=== PATIENT | male | born 1980 | race Caucasian/White ===

== ENCOUNTER → 2018-03-11 13:30 | Outpatient (CLI) | payer MEDICAID, SELFPAY ==
[2018-03-11 14:19] LABS: Basophils % 0.4 % (0.1-2.0); Eosinophils # 0.4 K/mm3 (0.0-0.4); Eosinophils % 4.3 % (0.1-12.0); Hematocrit 43.2 % (42.0-52.0); Hemoglobin 14.7 g/dL (14.1-18.0); Lymphocytes # 2.5 K/mm3 (0.7-4.5); Lymphocytes % 30.3 K/mm3 (10-50); Mean Corpuscular Hemoglobin 32.5 pg (27.0-31.2); Mean Corpuscular Volume 95.6 fl (80-94); Mean Platelet Volume 8.1 fl (7.4-10.4); Monocytes # 0.4 K/mm3 (0.1-1.0); Monocytes % 4.9 % (1.7-9.3); Platelet Count 245 K/mm3 (142-424); Red Blood Count 4.52 M/mm3 (4.60-6.20); Red Cell Distribution Width 12.8 % (11.5-17.5); White Blood Count 8.3 K/mm3 (4.8-10.8)
[2018-03-11 15:24] LABS: Alanine Aminotransferase 36 U/L (12-78); Albumin Level 3.7 gm/dL (3.4-5.0); Alkaline Phosphatase 79 U/L (46-116); Anion Gap 13.1 mEq/L (5-15); Aspartate Amino Transferase 28 U/L (15-37); Bilirubin,Total 0.5 mg/dL (0.2-1.0); Blood Urea Nitrogen 14 mg/dL (7-18); Calcium 9.3 mg/dL (8.5-10.1); Carbon Dioxide 28 mmol/L (21.0-32.0); Chloride 102 mmol/L (98-107); Creatinine,Serum 0.87 mg/dL (0.70-1.30); Estimated Glomerular Filt Rate 100 ml/min (>60); GFR (African American) 121 ML/MIN (>60); Globulin 3.6 gm/dl (1.3-3.2); Glucose 141 mg/dL (74-106); Potassium 4.1 mmoL/L (3.5-5.1); Sodium 139 mmol/L (136-145); Total Protein,Serum 7.3 gm/dL (6.4-8.2)
== END ==
PROVIDERS: Visit Provider Nurse Practitioner Family
DX: B19.20 Unspecified viral hepatitis C without hepatic coma (principal); Z79.899 Other long term (current) drug therapy
CPT/HCPCS: 36415; 80053; 85025; 87522

== ENCOUNTER → 2018-04-30 13:17 | Outpatient (CLI) | payer MEDICAID, SELFPAY ==
[2018-04-30 14:15] LABS: Basophils # 0.1 K/mm3 (0-0.2); Basophils % 0.9 % (0.1-2.0); Eosinophils # 0.6 K/mm3 (0.0-0.4); Eosinophils % 7.9 % (0.1-12.0); Hematocrit 41.3 % (42.0-52.0); Hemoglobin 14.4 g/dL (14.1-18.0); Lymphocytes # 2.3 K/mm3 (0.7-4.5); Lymphocytes % 32.1 K/mm3 (10-50); Mean Corpuscular Volume 94.2 fl (80-94); Mean Platelet Volume 7.8 fl (7.4-10.4); Monocytes # 0.4 K/mm3 (0.1-1.0); Monocytes % 5.9 % (1.7-9.3); Neutrophils # 3.9 K/mm3 (1.8-7.8); Neutrophils % 53.3 % (37.0-80.0); Platelet Count 267 K/mm3 (142-424); Red Blood Count 4.38 M/mm3 (4.60-6.20); Red Cell Distribution Width 12.9 % (11.5-17.5); White Blood Count 7.3 K/mm3 (4.8-10.8)
[2018-04-30 14:20] LABS: Activated Partial Thrombo Time 29.8 seconds (23.6-34.0); INR 0.96 (0.9-1.1); Prothrombin Time 9.9 seconds (9.4-11.8)
[2018-04-30 14:42] LABS: Alanine Aminotransferase 31 U/L (12-78); Albumin Level 3.7 gm/dL (3.4-5.0); Albumin/Globulin Ratio 1.1 (1.1-1.8); Alkaline Phosphatase 92 U/L (46-116); Anion Gap 12.3 mEq/L (5-15); Aspartate Amino Transferase 24 U/L (15-37); Bilirubin,Total 0.2 mg/dL (0.2-1.0); Blood Urea Nitrogen 16 mg/dL (7-18); Calcium 8.4 mg/dL (8.5-10.1); Carbon Dioxide 26 mmol/L (21.0-32.0); Chloride 107 mmol/L (98-107); Estimated Glomerular Filt Rate 110 ml/min (>60); GFR (African American) 133 ML/MIN (>60); Globulin 3.3 gm/dl (1.3-3.2); Glucose 107 mg/dL (74-106); Potassium 4.3 mmoL/L (3.5-5.1); Sodium 141 mmol/L (136-145)
== END ==
PROVIDERS: Visit Provider Nurse Practitioner Family
DX: B19.20 Unspecified viral hepatitis C without hepatic coma (principal); Z79.899 Other long term (current) drug therapy
CPT/HCPCS: 36415; 80053; 85025; 85610; 85730; 87522

== ENCOUNTER → 2018-05-24 11:08 | Outpatient (CLI) | payer MEDICAID, SELFPAY ==
[2018-05-24 11:38] LABS: Basophils # 0.1 K/mm3 (0-0.2); Basophils % 0.6 % (0.1-2.0); Eosinophils # 0.4 K/mm3 (0.0-0.4); Eosinophils % 4.4 % (0.1-12.0); Hematocrit 40.6 % (42.0-52.0); Hemoglobin 13.7 g/dL (14.1-18.0); Lymphocytes # 1.9 K/mm3 (0.7-4.5); Lymphocytes % 22.5 K/mm3 (10-50); Mean Corpuscular HGB Conc 33.6 g/dL (31.8-35.4); Mean Corpuscular Hemoglobin 31.8 pg (27.0-31.2); Mean Corpuscular Volume 94.8 fl (80-94); Mean Platelet Volume 7.4 fl (7.4-10.4); Monocytes # 0.4 K/mm3 (0.1-1.0); Monocytes % 4.6 % (1.7-9.3); Neutrophils # 5.6 K/mm3 (1.8-7.8); Neutrophils % 67.8 % (37.0-80.0); Platelet Count 266 K/mm3 (142-424); Red Blood Count 4.29 M/mm3 (4.60-6.20); Red Cell Distribution Width 12.9 % (11.5-17.5); White Blood Count 8.3 K/mm3 (4.8-10.8)
[2018-05-24 12:23] LABS: Alanine Aminotransferase 32 U/L (12-78); Albumin Level 3.7 gm/dL (3.4-5.0); Albumin/Globulin Ratio 1.1 (1.1-1.8); Alkaline Phosphatase 83 U/L (46-116); Anion Gap 13.1 mEq/L (5-15); Aspartate Amino Transferase 24 U/L (15-37); Bilirubin,Total 0.4 mg/dL (0.2-1.0); Blood Urea Nitrogen 15 mg/dL (7-18); Calcium 8.9 mg/dL (8.5-10.1); Carbon Dioxide 28 mmol/L (21.0-32.0); Chloride 104 mmol/L (98-107); Creatinine,Serum 0.89 mg/dL (0.70-1.30); Estimated Glomerular Filt Rate 97 ml/min (>60); GFR (African American) 118 ML/MIN (>60); Globulin 3.5 gm/dl (1.3-3.2); Glucose 98 mg/dL (74-106); Potassium 4.1 mmoL/L (3.5-5.1); Sodium 141 mmol/L (136-145); Total Protein,Serum 7.2 gm/dL (6.4-8.2)
== END ==
PROVIDERS: Visit Provider Nurse Practitioner Family
DX: B19.20 Unspecified viral hepatitis C without hepatic coma (principal); Z79.899 Other long term (current) drug therapy
CPT/HCPCS: 36415; 80053; 85025; 87522

== ENCOUNTER → 2018-08-24 07:10 | Outpatient (CLI) | payer OTHER, MEDICAID, SELFPAY ==
[2018-08-24 08:12] LABS: Basophils # 0.1 K/mm3 (0-0.2); Basophils % 0.7 % (0.1-2.0); Eosinophils # 0.4 K/mm3 (0.0-0.4); Eosinophils % 5.2 % (0.1-12.0); Hematocrit 43.2 % (42.0-52.0); Hemoglobin 14.3 g/dL (14.1-18.0); Lymphocytes # 2.7 K/mm3 (0.7-4.5); Lymphocytes % 32.9 K/mm3 (10-50); Mean Corpuscular HGB Conc 33.2 g/dL (31.8-35.4); Mean Corpuscular Hemoglobin 31.6 pg (27.0-31.2); Mean Corpuscular Volume 95.4 fl (80-94); Mean Platelet Volume 7.4 fl (7.4-10.4); Monocytes # 0.4 K/mm3 (0.1-1.0); Neutrophils # 4.6 K/mm3 (1.8-7.8); Neutrophils % 56.1 % (37.0-80.0); Platelet Count 299 K/mm3 (142-424); Red Blood Count 4.53 M/mm3 (4.60-6.20); Red Cell Distribution Width 12.7 % (11.5-17.5); White Blood Count 8.3 K/mm3 (4.8-10.8)
[2018-08-24 08:34] LABS: Alanine Aminotransferase 34 U/L (12-78); Albumin/Globulin Ratio 1.1 (1.1-1.8); Alkaline Phosphatase 85 U/L (46-116); Anion Gap 11.7 mEq/L (5-15); Aspartate Amino Transferase 27 U/L (15-37); Bilirubin,Total 0.4 mg/dL (0.2-1.0); Blood Urea Nitrogen 16 mg/dL (7-18); Calcium 9.2 mg/dL (8.5-10.1); Carbon Dioxide 30 mmol/L (21.0-32.0); Chloride 102 mmol/L (98-107); Estimated Glomerular Filt Rate 110 ml/min (>60); GFR (African American) 133 ML/MIN (>60); Globulin 3.5 gm/dl (1.3-3.2); Glucose 85 mg/dL (74-106); Potassium 4.7 mmoL/L (3.5-5.1); Sodium 139 mmol/L (136-145); Total Protein,Serum 7.5 gm/dL (6.4-8.2)
== END ==
PROVIDERS: PCP Family Medicine; Visit Provider Nurse Practitioner Family
DX: B19.20 Unspecified viral hepatitis C without hepatic coma (principal); Z00.00 Encounter for general adult medical examination without abnormal findings; Z79.899 Other long term (current) drug therapy
CPT/HCPCS: 36415; 80053; 85025; 87522

== ENCOUNTER → 2019-03-17 12:07 | Outpatient (CLI) | payer BC, MEDICAID, SELFPAY ==
[2019-03-17 13:00] VITALS: PULSE 88; PULSE 90
== END ==
PROVIDERS: PCP Family Medicine; Visit Provider Nurse Practitioner Family
DX: R06.02 Shortness of breath (principal); G47.33 Obstructive sleep apnea (adult) (pediatric); R40.0 Somnolence; J44.9 Chronic obstructive pulmonary disease, unspecified
CPT/HCPCS: 94060; 94640; 94726; 94729; G0399

== ENCOUNTER → 2020-09-20 14:52 | Outpatient (CLI) | payer BC, SELFPAY | PROVIDERS: PCP Nurse Practitioner Family; Visit Provider Nurse Practitioner Family | DX: Z03.818 Encounter for observation for suspected exposure to other biological agents ruled out (principal) | CPT/HCPCS: U0003 ==

== ENCOUNTER → 2020-10-02 13:20 | Outpatient (CLI) | payer BC, SELFPAY ==
[2020-10-03 09:48] LABS: Covid-19 Nasal PCR Sendout Lex Positive
== END ==
PROVIDERS: PCP Nurse Practitioner Family; Visit Provider Nurse Practitioner Family
DX: Z20.828 Contact with and (suspected) exposure to other viral communicable diseases (principal); U07.1 COVID-19
CPT/HCPCS: U0004

== ENCOUNTER → 2021-10-27 12:15 | Outpatient (CLI) | payer BC, SELFPAY | PROVIDERS: PCP Internal Medicine Adolescent Medicine; Visit Provider Nurse Practitioner | DX: Z20.822 Contact with and (suspected) exposure to COVID-19 (principal) | CPT/HCPCS: C9803; U0003; U0005 ==

== ENCOUNTER → 2022-10-06 16:25 | Outpatient (CLI) | payer OTHER, BC, SELFPAY ==
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
== END ==
PROVIDERS: PCP Nurse Practitioner Family; Visit Provider Nurse Practitioner Family
DX: M25.531 Pain in right wrist (principal); M79.641 Pain in right hand
CPT/HCPCS: 73110; 73130

== ENCOUNTER → 2023-10-26 11:03 | Outpatient (CLI) | payer OTHER, SELFPAY ==
[2023-10-26 11:21] LABS: Basophils % 0.4 % (0.1-2.0); Eosinophils # 0.2 K/mm3 (0.0-0.4); Eosinophils % 2.7 % (0.1-12.0); Hematocrit 43.6 % (42.0-52.0); Hemoglobin 14.5 g/dL (14.1-18.0); Lymphocytes # 1.8 K/mm3 (0.7-4.5); Lymphocytes % 30.1 % (10-50); Mean Corpuscular HGB Conc 33.2 g/dL (31.8-35.4); Mean Corpuscular Hemoglobin 31.8 pg (27.0-31.2); Mean Corpuscular Volume 95.8 fl (80-94); Mean Platelet Volume 8.3 fl (7.4-10.4); Monocytes # 0.3 K/mm3 (0.1-1.0); Monocytes % 5.3 % (1.7-9.3); Neutrophils # 3.8 K/mm3 (1.8-7.8); Neutrophils % 61.5 % (37.0-80.0); Platelet Count 273 K/mm3 (142-424); Red Blood Count 4.55 M/mm3 (4.60-6.20); White Blood Count 6.1 K/mm3 (4.8-10.8)
[2023-10-26 11:42] LABS: Hemoglobin A1C 5.4 % (4.0-6.0)
[2023-10-26 12:04] LABS: Alanine Aminotransferase 40 U/L (12-78); Albumin Level 4.1 g/dl (3.5-5.0); Albumin/Globulin Ratio 1.3 (1.1-1.8); Alkaline Phosphatase 68 U/L (38-126); Anion Gap 9.6 mEq/L (5-15); Aspartate Amino Transferase 33 U/L (17-59); Bilirubin,Total 0.5 mg/dl (0.2-1.3); Blood Urea Nitrogen 14 mg/dl (9-20); Calcium 8.5 mg/dl (8.4-10.2); Carbon Dioxide 29 mmol/L (22.0-30.0); Chloride 103 mmol/L (98-107); Chol/HDL Ratio 4.5 (1-3.5); Cholesterol 116 mg/dl (140-200); Estimated Glomerular Filt Rate 107 ml/min (>60); GFR (African American) 129 ML/MIN (>60); Globulin 3.1 g/dL (1.3-3.2); Glucose 93 mg/dl (74-100); HDL Cholesterol 26 mg/dl (40-60); Potassium 4.6 mmoL/L (3.5-5.1); Sodium 137 mmol/L (136-145); Total Protein,Serum 7.2 g/dl (6.3-8.2); Triglycerides 54 mg/dl (30-150); VLDL Cholesterol 11 mg/dL (0-40)
[2023-10-26 12:16] LABS: Direct LDL Cholesterol 79.99 mg/dL (100-129)
[2023-10-26 12:21] LABS: 25-OH Vitamin D, Total 26.8 ng/mL (30-100)
[2023-10-26 12:22] LABS: Free Thyroxine Index 2.3 ug/dL (5.93-13.13); T4 (Thyroxine) 7.5 ug/dl (5.53-11.0); Triiodothryronine (T3) Uptake 31 % (23.5-40.5)
[2023-10-26 12:36] LABS: Thyroid Stimulating Hormone 6.18 uIU/mL (0.465-4.68)
[2023-10-26 12:55] LABS: Vitamin B12 863 pg/mL (239-931)
== END ==
PROVIDERS: PCP Nurse Practitioner Family; Visit Provider Nurse Practitioner Family
DX: Z00.00 Encounter for general adult medical examination without abnormal findings (principal); R94.6 Abnormal results of thyroid function studies; G47.33 Obstructive sleep apnea (adult) (pediatric); E66.9 Obesity, unspecified; Z68.32 Body mass index [BMI] 32.0-32.9, adult; Z79.899 Other long term (current) drug therapy
CPT/HCPCS: 36415; 80053; 80061; 82306; 82607; 83036; 84436; 84443; 84479; 85025

== ENCOUNTER 2024-07-07 08:10 | Outpatient (CLI) | payer SELFPAY ==
[2024-07-07 08:35] LABS: Basophils # 0.1 K/mm3 (0-0.2); Eosinophils # 0.4 K/mm3 (0.0-0.4); Eosinophils % 6.7 % (0.1-12.0); Hematocrit 44.9 % (42.0-52.0); Lymphocytes # 1.5 K/mm3 (0.7-4.5); Lymphocytes % 22.6 % (10-50); Mean Corpuscular HGB Conc 31.1 g/dL (31.8-35.4); Mean Corpuscular Hemoglobin 32.1 pg (27.0-31.2); Mean Corpuscular Volume 103.2 fl (80-94); Mean Platelet Volume 7.7 fl (7.4-10.4); Monocytes # 0.4 K/mm3 (0.1-1.0); Monocytes % 5.9 % (1.7-9.3); Neutrophils # 4.1 K/mm3 (1.8-7.8); Neutrophils % 63.8 % (37.0-80.0); Platelet Count 440 K/mm3 (142-424); Red Blood Count 4.35 M/mm3 (4.60-6.20); Red Cell Distribution Width 13.5 % (11.5-17.5); White Blood Count 6.5 K/mm3 (4.8-10.8)
[2024-07-07 09:13] LABS: Alanine Aminotransferase 41 U/L (12-78); Albumin Level 3.7 g/dl (3.5-5.0); Albumin/Globulin Ratio 1.1 (1.1-1.8); Alkaline Phosphatase 67 U/L (38-126); Anion Gap 9.1 mEq/L (5-15); Aspartate Amino Transferase 34 U/L (17-59); Bilirubin,Total 0.4 mg/dl (0.2-1.3); Blood Urea Nitrogen 15 mg/dl (9-20); Calcium 9.3 mg/dl (8.4-10.2); Carbon Dioxide 30 mmol/L (22.0-30.0); Chloride 105 mmol/L (98-107); Chol/HDL Ratio 5.9 (1-3.5); Cholesterol 154 mg/dl (140-200); Estimated Glomerular Filt Rate 124 ml/min (>60); GFR (African American) 150 ML/MIN (>60); Globulin 3.3 g/dL (1.3-3.2); Glucose 100 mg/dl (74-100); HDL Cholesterol 26 mg/dl (40-60); Potassium 5.1 mmoL/L (3.5-5.1); Sodium 139 mmol/L (136-145); Triglycerides 59 mg/dl (30-150); VLDL Cholesterol 12 mg/dL (0-40)
[2024-07-07 09:24] LABS: Direct LDL Cholesterol 114.63 mg/dL (100-129)
[2024-07-07 09:30] LABS: 25-OH Vitamin D, Total 28.2 ng/mL (30-100)
[2024-07-07 09:44] LABS: Thyroid Stimulating Hormone 2.18 uIU/mL (0.465-4.68)
[2024-07-07 11:28] LABS: Hemoglobin A1C 5.5 % (4.0-6.0)
[2024-07-08 08:17] LABS: Testosterone,Total 157 ng/dL (264-916)
== END 2024-07-07 23:59 | disposition home or self-care (01) ==
PROVIDERS: PCP Nurse Practitioner Family; Visit Provider Nurse Practitioner Family
DX: Z00.00 Encounter for general adult medical examination without abnormal findings (principal); E03.9 Hypothyroidism, unspecified; E55.9 Vitamin D deficiency, unspecified; R53.81 Other malaise
CPT/HCPCS: 36415; 80050; 80053; 80061; 82306; 83036; 84403; 84443; 85025

== ENCOUNTER 2024-10-08 11:45 | Emergency (ER) | payer SELFPAY ==
[2024-10-08 12:30] VITALS: BP 134/65; PULSE 74; RESP 20; TEMP 37; O2SAT 97; BMI 36.8
--- NOTE | 2024-10-08 12:48 | EXP.UTC ---
Discharge Plan Disposition Patient Disposition: Home, Self-Care Condition: Good Prescriptions Prescriptions: New prednisone 20 mg tablet 20 mg PO BID Qty: 10 0RF No Action famotidine 40 mg tablet 40 mg PO HS Patient Comments: TAKE ONE TABLET BY MOUTH EVERY DAY AT BEDTIME levothyroxine 75 mcg tablet 75 mcg PO DAILY Patient Comments: TAKE ONE TABLET BY MOUTH EVERY DAY buprenorphine-naloxone 8-2 mg film 1 film sublingual DAILY Referrals Follow up/Referrals: Leandro Cisneros MD [Primary Care Provider] - See instructions Activity Restrictions/Add. Instructions Additional Instructions/Restrictions: Steroids as directed Benadryl [id number] as needed If symptoms return or worsen return to the [facility] or ER Follow-up with PCP for more testing Clinical Impressions Clinical Impression: Allergic reaction Instructions Patient Instructions: DI for General Allergic Reactions Print Language Print Language: Lao Discharge ED Provider: Anjana ([facility])[place] [facility] [place] General Stated complaint: sore throat, swollen Mode of Arrival: Ambulatory Source of Information: Patient Limitations: No Limitations Time Seen by Provider: 10/08/24 12:48 Description of Symptoms (Recalled from Triage Doc. by RN): PATIENT STATES HIS THROAT STARTED SWELLING YESTERDAY AND HE HAD AN EPISODE OF SOA LAST NIGHT. HE STATES HIS THROAT IS NOT SWOLLEN NOW, BUT IS SORE. HEENT Symptoms (Recalled from RN notes): Yes Resp Symptoms (Recalled from RN notes): No Skin Symptoms (Recalled from RN notes): No MS Symptoms (Recalled from RN notes): No Functional Status (Recalled from RN notes): WNL History of Present Illness Provider Complaint: 44-year-old male presents for sore throat. Patient states he woke up at 3:00 in the morning and felt like his throat was closing and he could not catch a deep breath. Patient states her symptoms are gone now but his throat is still a little sore and feels slightly swollen. Patient denies shortness of breath or rash. Patient states he has been having these types of episodes now for couple of years but does not know what he is coming in contact with. Related Data Home Medications ?Medication ?Instructions ?Recorded ?Confirmed buprenorphine 8 mg-naloxone 2 mg 1 film sublingual DAILY 10/08/24 10/08/24 sublingual film famotidine 40 mg tablet 40 mg PO HS 10/08/24 10/08/24 levothyroxine 75 mcg tablet 75 mcg PO DAILY 10/08/24 10/08/24 Previous Rx's ?Medication ?Instructions ?Recorded prednisone 20 mg tablet 20 mg PO BID #10 tabs 10/08/24 Allergies Allergy/AdvReac Type Severity Reaction Status Date / Time No Known Allergies Allergy Verified 02/11/23 15:59 Worker's Comp Is this a Worker's Comp case?: No [facility] Disclaimer: The information contained in this section may have been updated after the patient was seen, as this information can be updated by other users. Family History , WIRELESS ARCHITECT) Substance abuse Diabetes Alcoholism Cancer Stroke Social History , WIRELESS ARCHITECT) Smoking Status: Current every day smoker alcohol intake: current alcohol intake frequency: holidays/special occasions only substance use type: former substance user and opiates current occupational status: employed Travel in the last 8 weeks: None household members: significant other housing: house marital status: ROS Obtained: Yes Systems reviewed as appropriate & no additional complaints except as documented Physical Exam General General appearance: alert and in no apparent distress Eye Eye exam: Present normal appearance ENT ENT exam: Present mucous membranes moist and TM's normal bilaterally Expanded ENT Exam Mouth exam: Present tongue normal; Absent lip swelling or tongue swelling Throat exam: Present tonsillar erythema; Absent tonsillar exudate Respiratory Respiratory exam: Present normal lung sounds bilaterally Cardiovascular Cardiovascular exam: Present regular rate and normal rhythm Neurological Exam Neurological exam: Present alert and oriented X3 Skin Skin exam: Present warm and intact; Absent rash Lymphatic Lymphatic Findings: no adenopathy Medical Decision Making Medical Records Medical records reviewed: Yes I reviewed the patient's medical records. Screening: Per USPSTF and CDC recommendations, given the prevalence of disease in our region, it is our hospital?s policy to screen for HIV and viral Hepatitis for all patients aged 18 and over and those with ongoing risk factors. [place] Inquiry Pt receiving controlled substance: No [place] was queried for this patient: No Vital Signs: 10/08/24 12:30 Temperature 98.6 F Temperature Source Oral Pulse Rate [Left Brachial] 74 Respiratory Rate 20 Blood Pressure [Left Arm] 134/65 Blood Pressure Mean [Left Arm] 88 Blood Pressure Source [Left Arm] Automatic Cuff Blood Pressure Position [Left Arm] Sitting 02 Sat by Pulse Oximetry 97 Oxygen Delivery Method Room Air Lab Data Lab results reviewed: Yes I reviewed the patient's lab results.
[2024-10-08 12:52] LABS: UTC Strep Screen (Rapid) Negative (Negative)
[2024-10-08 13:04] VITALS: BP 134/65; PULSE 74; RESP 20; TEMP 37; O2SAT 97
== END 2024-10-08 13:08 | disposition home or self-care (01) ==
PROVIDERS: Emergency Provider Nurse Practitioner Family; PCP Internal Medicine Adolescent Medicine
DX: T78.40XA Allergy, unspecified, initial encounter (principal)
CPT/HCPCS: 87880; 99213; G0381

== ENCOUNTER 2025-03-09 11:41 | Outpatient (CLI) | payer OTHER, SELFPAY ==
[2025-03-09 12:27] LABS: Basophils # 0.1 K/mm3 (0-0.2); Basophils % 0.7 % (0.1-2.0); Eosinophils # 0.3 Kmm3 (0.0-0.4); Eosinophils % 3.2 % (0.1-12.0); Hematocrit 40.1 % (42.0-52.0); Hemoglobin 13.8 g/dL (14.1-18.0); Immature Granulocytes # 0.03 10^3uL; Immature Granulocytes % 0.4 %; Lymphocytes # 2.1 K/mm3 (0.7-4.5); Lymphocytes % 25.8 % (10-50); Mean Corpuscular HGB Conc 34.4 g/dL (31.8-35.4); Mean Corpuscular Hemoglobin 32.3 pg (27.0-31.2); Mean Corpuscular Volume 93.9 fl (80-94); Mean Platelet Volume 9.8 fl (7.4-10.4); Monocytes # 0.6 K/mm3 (0.1-1.0); Monocytes % 6.9 % (1.7-9.3); Neutrophils # 5.1 K/mm3 (1.8-7.8); Nucleated Red Blood Cells # 0 10^3/uL; Nucleated Red Blood Cells % 0 %; Platelet Count 283 K/mm3 (142-424); Red Blood Count 4.27 M/mm3 (4.60-6.20); Red Cell Distribution Width 12.7 % (11.5-17.5); Red Cell Distribution Width-SD 43.8 fL; White Blood Count 8.1 K/mm3 (4.8-10.8)
[2025-03-09 12:40] LABS: Albumin Level 4.4 g/dl (3.5-5.0); Chloride 104 mmol/L (98-107); Potassium 4.7 mmoL/L (3.5-5.1); Sodium 136 mmol/L (136-145)
[2025-03-09 12:42] LABS: Blood Urea Nitrogen 16 mg/dl (9-20); Estimated Glomerular Filt Rate 93 ml/min (>60); GFR (African American) 112 ML/MIN (>60)
[2025-03-09 12:43] LABS: Alanine Aminotransferase 46 U/L (12-78); Albumin/Globulin Ratio 1.6 (1.1-1.8); Alkaline Phosphatase 70 U/L (38-126); Anion Gap 7.7 mEq/L (5-15); Aspartate Amino Transferase 37 U/L (17-59); Bilirubin,Total 0.6 mg/dl (0.2-1.3); Calcium 9.2 mg/dl (8.4-10.2); Carbon Dioxide 29 mmol/L (22.0-30.0); Chol/HDL Ratio 3.8 (1-3.5); Cholesterol 157 mg/dl (140-200); Globulin 2.7 g/dL (1.3-3.2); Glucose 100 mg/dl (74-100); HDL Cholesterol 41 mg/dl (40-60); Total Protein,Serum 7.1 g/dl (6.3-8.2); Triglycerides 75 mg/dl (30-150); VLDL Cholesterol 15 mg/dL (0-40)
[2025-03-09 12:54] LABS: Direct LDL Cholesterol 101.01 mg/dL (100-129)
[2025-03-09 13:06] LABS: 25-OH Vitamin D, Total 30.2 ng/mL (30-100)
[2025-03-09 13:16] LABS: Thyroid Stimulating Hormone 5.64 uIU/mL (0.465-4.68)
[2025-03-09 13:40] LABS: Hemoglobin A1C 5.6 % (4.0-6.0)
[2025-03-09 13:57] LABS: Vitamin B12 550 pg/mL (239-931)
[2025-03-10 12:14] LABS: Iron 134 ug/dL (49-181)
[2025-03-10 12:23] LABS: Total Iron Binding Capacity 334 ug/dL (261-462)
[2025-03-10 12:50] LABS: Ferritin 88.5 ng/ml (17.9-464)
== END 2025-03-09 23:59 | disposition home or self-care (01) ==
LOC: LAB 11:44
PROVIDERS: PCP Internal Medicine Adolescent Medicine; Visit Provider Nurse Practitioner Family
DX: Z00.00 Encounter for general adult medical examination without abnormal findings (principal); E55.9 Vitamin D deficiency, unspecified; E03.9 Hypothyroidism, unspecified; E66.9 Obesity, unspecified
CPT/HCPCS: 36415; 80053; 80061; 82306; 82607; 82728; 83036; 83540; 83550; 84443; 85025

== ENCOUNTER 2025-08-14 08:23 | Outpatient (CLI) | payer OTHER, SELFPAY ==
[2025-08-14 08:58] LABS: Hematocrit 41.2 % (42.0-52.0); Hemoglobin 13.9 g/dL (14.1-18.0); Immature Granulocytes % 0.6 %; Mean Corpuscular HGB Conc 33.7 g/dL (31.8-35.4); Mean Corpuscular Hemoglobin 32.5 pg (27.0-31.2); Mean Corpuscular Volume 96.3 fl (80-94); Nucleated Red Blood Cells % 0 %; Platelet Count 286 K/mm3 (142-424); Red Blood Count 4.28 M/mm3 (4.60-6.20); Red Cell Distribution Width-SD 46.3 fL; White Blood Count 8.2 K/mm3 (4.8-10.8)
[2025-08-14 09:22] LABS: Alanine Aminotransferase 44 U/L (12-78); Albumin Level 4.2 g/dl (3.5-5.0); Albumin/Globulin Ratio 1.6 (1.1-1.8); Alkaline Phosphatase 81 U/L (38-126); Anion Gap 13.8 mEq/L (5-15); Aspartate Amino Transferase 35 U/L (17-59); Bilirubin,Total 0.7 mg/dl (0.2-1.3); Blood Urea Nitrogen 18 mg/dl (9-20); Calcium 9.3 mg/dl (8.4-10.2); Carbon Dioxide 28 mmol/L (22.0-30.0); Chloride 101 mmol/L (98-107); Creatinine,Serum 0.90 mg/dl (0.66-1.25); Estimated Glomerular Filt Rate 93 ml/min (>60); GFR (African American) 112 ML/MIN (>60); Globulin 2.7 g/dL (1.3-3.2); Glucose 94 mg/dl (74-100); Potassium 4.8 mmoL/L (3.5-5.1); Sodium 138 mmol/L (136-145); Total Protein,Serum 6.9 g/dl (6.3-8.2)
[2025-08-14 09:28] LABS: NT Pro Brain Natriuretic Pep. < 20.0 pg/mL (0-125)
[2025-08-14 09:38] LABS: Free T4 (Free Thyroxine) 0.70 ng/dl (0.78-2.19)
[2025-08-14 09:50] LABS: Thyroid Stimulating Hormone 7.18 uIU/mL (0.465-4.68)
== END 2025-08-14 23:59 | disposition home or self-care (01) ==
LOC: LAB 08:25
PROVIDERS: PCP Nurse Practitioner Family; Visit Provider Nurse Practitioner Family
DX: E03.9 Hypothyroidism, unspecified (principal); D64.9 Anemia, unspecified; R60.0 Localized edema
CPT/HCPCS: 36415; 80053; 83880; 84439; 84443; 85025

== ENCOUNTER 2025-08-23 13:24 | Outpatient (CLI) | payer BC, SELFPAY ==
--- NOTE | 2025-08-23 13:31 | CA_ITS ---
APPROVED REPORT EXAM: Comprehensive 2D, Doppler, and color-flow Echocardiogram Research Mechanic: Lita Novak RVT Ht: 6 ft 2 in Wt: 300lbs BSA: 2.58 BP: 136/74 mmHg Indications: EDEMA 2D Dimensions LA Volume 40.10 mL LA Volume Index 15.54 mL/m2 (M/F) 16-34 M-Mode Dimensions RVDd 3.08 cm (0.9-2.6) LA Diam 3.29 cm (1.9-4.0) LVDd 5.99 cm (3.5-5.7) LVDs 3.93 cm (3.5-5.7) IVSd 0.98 cm (0.6-1.1) PWd 0.89 cm (0.6-1.1) EF (Teich) 62.60% FS 34.40% EDV (Teich) 179.30 mL TAPSE 2.35 (<1.7) ESV (Teich) 67.10 mL LV Diastology E Decel Time 220 (160-240 msec) E/A Ratio 1.3 Aortic Valve SHEILA Index 1.27 cm2/m2 AoV Peak Isra. 131.0 (50-130 cm/s) AO Peak GR. 6.80 mmHg AO Mean GR. 3.60 (<5 mmHg) AO VTI 24.2 (18-25 cm) SHEILA (VTI) 3.36 (2.5-4.5 cm2) Mitral Valve MV E Max Isra. 96.0 (40-130 cm/s) MV A Velocity 76.0 (40-130 cm/s) E/A Ratio 1.27 MV PHT 64.0 ms Pulmonary Valve PV Peak Velocity 84.0 (50-150 cm/s) Tricuspid Valve TR P. Velocity 250.00 cm/s RAP Estimate 8.00 mmHg RVSP 33.00 mmHg Left Ventricle The left ventricle is normal size. Left ventricular systolic function is normal. The left ventricular ejection fraction is within the normal range. There is normal left ventricular wall thickness. There is normal LV segmental wall motion. The left ventricular diastolic function is normal. LVEF is 55% Right Ventricle The right ventricle is mildly dilated. The right ventricular systolic function is normal. Atria The left atrium size is normal. The right atrium size is normal. There is no color Doppler evidence of interatrial shunt. Aortic Valve The aortic valve opens well. There is no hemodynamically significant aortic valvular stenosis. No aortic regurgitation is present. Mitral Valve The mitral valve is normal in structure. No evidence of mitral valve stenosis. Trace mitral regurgitation is present. Tricuspid Valve The tricuspid valve leaflets are thin and pliable. Trace tricuspid regurgitation. There is insufficient TR jet to estimate RVSP. Pulmonic Valve The pulmonary valve is grossly normal in structure. Trace pulmonic valve regurgitation is present. Great Vessels The aortic root is normal in size. IVC is normal in size and collapses >50% with inspiration. Pericardium There is no pericardial effusion. Other Information Study Quality: Technically Difficult Conclusion Normal biventricular systolic function. Mild RV dilation. No significant valvular stenosis or regurgitation. Electronically signed by : Lissy Harmon MD 09/01/2025 01:08:56
--- OUTSIDE RECORDS SUMMARY | 2025-08-23 14:34 | XMS_ITS | Clinical Summary ---
Author Organization Healthcare Address [address] [place] [address] Care Team Providers Care Delivery Specialist Name Role Phone Edmond Mahmood MD Primary Care Provider [phone] Immunizations Immunization Administration Dates Next Due Hep A / Hep B 02/07/2018 Family History Medical History Relation Name Comments Other cancer Father Relation Name Status Comments Father Social History Tobacco Use Types Packs/Day Years Used Date Smoking Tobacco: Every Day Alcohol Use Standard Drinks/Week Comments Yes 0 (1 standard drink = 0.6 oz pure alcohol) Alcoholic Drinks/day: Occasional alcohol use Sex and Gender Information Value Date Recorded Sex Assigned at Not on file Legal Sex Male 8:12 PM EDT Gender Identity Not on file Sexual Orientation Not on file Last Filed Vital Signs Vital Sign Reading Time Taken Comments Blood Pressure 121/76 03/29/2018 2:16 PM EDT Pulse 71 03/29/2018 2:16 PM EDT Temperature 36.7 C (98 F) 03/29/2018 2:16 PM EDT Respiratory Rate - - Oxygen Saturation - - Inhaled Oxygen Concentration - - Weight 114 kg (252 lb 4 oz) 03/29/2018 2:16 PM E DT Height 185.4 cm (6' 1 ) 03/29/2018 2:16 PM EDT Body Mass Index 33.28 03/29/2018 2:16 PM EDT Plan of Treatment Not on file Care Teams Delivery Specialist Relationship Specialty Start Date End Date Edmond Mahmood MD [address] [place] [address] #1 #1 EDY Hernandez [id number] PCP - General 03/14/21
== END 2025-08-23 23:59 | disposition home or self-care (01) ==
LOC: RT 13:29
PROVIDERS: PCP Nurse Practitioner Family; Visit Provider Nurse Practitioner Family
DX: I51.7 Cardiomegaly (principal)
CPT/HCPCS: 93306

== ENCOUNTER 2025-09-06 14:58 | Outpatient (CLI) | payer BC, SELFPAY ==
--- OUTSIDE RECORDS SUMMARY | 2025-09-06 15:02 | XMS_ITS | Clinical Summary ---
Author Organization Healthcare Address [address] [place] [address] Care Team Providers Care Box Blank Machine Feeder Name Role Phone Edmond Mahmood MD Primary Care Provider [phone] Immunizations Immunization Administration Dates Next Due Hep [...] of Treatment Not on file Care Teams Box Blank Machine Feeder Relationship Specialty Start Date End Date Edmond Mahmood MD [address] [place] [address] #1 #1 EDY Hernandez [id number] PCP - General 03/14/21
== END 2025-09-06 23:59 | disposition home or self-care (01) ==
LOC: LAB 15:00
PROVIDERS: PCP Nurse Practitioner Family; Visit Provider Nurse Practitioner Family
DX: R22.0 Localized swelling, mass and lump, head (principal)
CPT/HCPCS: 36415; 82785; 86003; 86008